=== PATIENT | male | born 1955 | race Caucasian/White ===

== ENCOUNTER 2016-12-23 08:45 | Inpatient (IN) | payer BC ==
[~2016-12-23] VITALS: Ht 182.9 cm; Wt 95.4 kg
[2016-12-24] VITALS (14 sets, daily range): BP systolic 93–127; BP diastolic 52–82; PULSE 66–112; TEMP 97.7–98.6
[2016-12-24] MEDS ORDERED: AMBIEN CR 12.12.5 MG PO (06:51)
[2016-12-24] MEDS ORDERED: ABILIFY5 MG PO (06:52)
[2016-12-24] MEDS ORDERED: BUSPAR DIVIDOSE15 MG PO (06:52)
[2016-12-24] MEDS ORDERED: VITAMIN D 50,1.25 MG PO (06:56)
[2016-12-24] MEDS ORDERED: NEURONTIN300 MG/CAP PO (06:57)
[2016-12-24] MEDS ORDERED: MIDRIN 325 MG-11 CAP PO (06:58)
[2016-12-24] MEDS ORDERED: TORADOL IN60 MG/2 ML IM (06:58)
[2016-12-24] MEDS ORDERED: PREVACID 30MG30 M1 PO (06:59)
[2016-12-24] MEDS ORDERED: ATIVAN 1MG T1 MG/TAB PO (07:00)
[2016-12-24] MEDS ORDERED: PRINIVIL5 MG PO (07:00)
[2016-12-24] MEDS ORDERED: MELATONIN5 M1 SL (07:01)
[2016-12-24] MEDS ORDERED: AMERGE 2.5MG T2.5 MG PO (07:02)
[2016-12-24] MEDS ORDERED: SEROQUEL 200MG200 MG PO (07:03)
[2016-12-24] MEDS ORDERED: MYSOLINE 5050 MG/TAB PO (07:03)
[2016-12-24] MEDS ORDERED: REGLAN 10MG10 MG/TAB PO (07:04)
[2016-12-24] MEDS ORDERED: MAXALT10 MG (07:05)
[2016-12-24] MEDS ORDERED: ZANAFLEX CAPSULE4 MG PO (07:06)
[2016-12-24] MEDS ORDERED: TOPAMAX 25MG25 M1 PO (07:07)
[2016-12-24] MEDS ORDERED: TOPAMAX 100MG100 M1 PO (07:07)
[2016-12-24] MEDS ORDERED: ULTRAM 50MG TAB50 MG PO (07:08)
[2016-12-24] MEDS ORDERED: TREXIMET 500 MG1 TAB PO (07:09)
[2016-12-24] MEDS ORDERED: VIAGRA 25MG TAB25 MG PO (07:10)
[2016-12-24] MEDS ORDERED: ZOLOFT 100MG100 MG PO (07:10)
[2016-12-24] MEDS ORDERED: ABILIFY2 MG PO (07:11)
[2016-12-24 14:34] LABS: HEMATOCRIT 29.3 % (42.0-52.0); HEMOGLOBIN 9.8 g/dl (13.5-18.0)
[2016-12-25] VITALS (15 sets, daily range): BP systolic 96–117; BP diastolic 40–59; PULSE 67–82; TEMP 97.7–99
[2016-12-25 06:44] LABS: MEAN CELL VOLUME 93 fl (80.0-100.0); MEAN CORPUSCULAR HGB CONC 34 g/dl (33.0-37.0); MEAN PLATELET VOLUME 10.5 fl (7.4-10.4); PLATELET COUNT 155 K/mm3 (130-400); RED BLOOD COUNT 2.57 M/mm3 (4.20-5.60); REDCELL DISTRIBUTION WIDTH-CV 12.6 % (11.5-14.5); WHITE BLOOD COUNT 9.2 K/mm3 (4.8-10.8)
[2016-12-25 06:58] LABS: HEMATOCRIT 23.9 % (42.0-52.0); MEAN CORPUSCULAR HEMOGLOBIN 31 pg (27.0-31.0)
[2016-12-25 07:13] LABS: CALCIUM 7.4 mg/dL (8.4-10.2); CREATININE, serum 1.05 mg/dL (0.66-1.25)
[2016-12-26 01:52] VITALS: BP 99/49; PULSE 84; TEMP 98.6
[2016-12-26 05:17] VITALS: BP 105/52; PULSE 81; TEMP 98.5
[2016-12-26 07:21] LABS: HEMATOCRIT 28.3 % (42.0-52.0); HEMOGLOBIN 9.5 g/dl (13.5-18.0)
[2016-12-26 10:34] VITALS: BP 109/58; PULSE 77; TEMP 97.9
[2016-12-26 14:11] VITALS: BP 112/57; PULSE 83; TEMP 98.8
[2016-12-26 18:27] VITALS: BP 115/61; PULSE 84; TEMP 98.5
[2016-12-26 20:31] VITALS: BP 117/57; PULSE 88; TEMP 98
[2016-12-27 01:42] VITALS: BP 121/55; PULSE 74; TEMP 98.6
[2016-12-27 05:27] VITALS: BP 131/62; PULSE 81; TEMP 97.7
[2016-12-27 09:46] VITALS: BP 110/50; PULSE 82; TEMP 98
[2016-12-27 13:43] VITALS: BP 134/74; PULSE 78; TEMP 98.2
== END 2016-12-27 18:45 | disposition home or self-care (01) | DRG 707 ==
LOC: INPTSU 12-24 05:22 → SURG 12-24 05:22
PROVIDERS: Urology
PROC: 07BC0ZX Excision of Pelvis Lymphatic, Open Approach, Diagnostic (ICD-10-PCS; 2016-12-24)
PROC: 0VT00ZZ Resection of Prostate, Open Approach (ICD-10-PCS; principal; 2016-12-24 07:30)
DX: C61 Malignant neoplasm of prostate (principal); D62 Acute posthemorrhagic anemia; I10 Essential (primary) hypertension
CPT/HCPCS: A9284; J0690; J1100; J1170; J2175; J2250; J2405; J2704; J2710; J3480; J7120; P9016